=== PATIENT | female | born 1985 | race Caucasian/White ===

== ENCOUNTER 2017-06-09 11:23 | Inpatient (IN) | payer MEDICAID ==
--- NOTE | 2017-06-09 11:53 | C.PDOC ---
History Of Present Illness 32 year old female with a history of polysusbstance abuse presents to the ED with complaints of suicidal ideations. Patient is now homeless and last use was. Patient denies physical complaints or homicidal ideations. +SUICIDAL IDEATION. +POLYSUBSTANCE ABUSE, NOW HOMELESS. LAST USE EXAM PSYCH CALM COOPERATIVE +SI. NO ACTIVE PSYCHOSIS Time Seen by Provider: 06/09/17 11:48 Chief Complaint (Nursing): Psychiatric Evaluation History Per: Patient, EMS History/Exam Limitations: no limitations Onset/Duration Of Symptoms: Hrs Current Symptoms Are (Timing): Still Present Modifying Factor(s): Other (polysubstance abuse ) Associated Symptoms: Suicidal Thoughts Involuntary Hold By: None Recent travel outside of the [place]: No Past Medical History Reviewed: Historical Data, Nursing Documentation, Vital Signs Vital Signs: Last Vital Signs Temp 97.2 F L 06/09/17 11:55 Pulse 74 06/09/17 11:55 Resp 16 06/09/17 11:55 BP 116/76 06/09/17 11:55 Pulse Ox 99 06/09/17 11:55 - Medical History PMH: Anxiety, Depression, Parkinson's Disease Family History: States: Unknown Family Hx - Social History Hx Alcohol Use: No Hx Substance Use: Yes - Immunization History Hx Tetanus Toxoid Vaccination: No Hx Influenza Vaccination: No Hx Pneumococcal Vaccination: No Review Of Systems Constitutional: Negative for: Fever, Chills Cardiovascular: Negative for: Chest Pain, Palpitations Respiratory: Negative for: Cough, Shortness of Breath Gastrointestinal: Negative for: Nausea, Vomiting Psych: Positive for: Suicidal ideation, Other (polysubstance abuse) Physical Exam - Physical Exam Appears: Non-toxic, No Acute Distress Skin: Warm, Dry, No Rash Head: Atraumatic, Normacephalic, No Tenderness Eye(s): bilateral: Normal Inspection Oral Mucosa: Moist Neck: Supple Chest: Symmetrical, No Deformity Cardiovascular: Rhythm Regular, No Murmur Respiratory: No Rales, No Rhonchi, No Wheezing, Other (clear to auscultation bilaterally) Gastrointestinal/Abdominal: Soft, No Tenderness, No Distention, No Guarding, No Rebound Extremity: Normal ROM, No Tenderness Neurological/Psych: Oriented x3, Other (Patient is calm, cooperative, and + suicidal ideations. No active psychosis. ) ED Course And Treatment - Laboratory Results Result Diagrams: 06/09/17 12:30 06/09/17 12:30 Progress Note: Labs, blood work, and CRISIS evaluation were ordered. Progress - Re-Evaluation Re-evaluation Note: 06/09/17 13:13 MED CLEAR FOR CRISIS EVAL. CRISIS NOTIFIED. NO COMPLAINTS OF UTI. RECOMMEND MEDICINE CONSULT PRN FOR SLIGHT LFT ELEVATION AND UA. Disposition Counseled Patient/Family Regarding: Studies Performed, Diagnosis - Disposition Disposition: HOSPITALIZED Disposition Time: 13:53 Condition: STABLE Forms: [employer] (Senegalese) - Clinical Impression Clinical Impression: Depression, Polysubstance abuse - Scribe Statement The provider has reviewed the documentation as recorded by the Scribe Antonina Cruz All medical record entries made by the Scribe were at my direction and personally dictated by me. I have reviewed the chart and agree that the record accurately reflects my personal performance of the history, physical exam, medical decision making, and the department course for this patient. I have also personally directed, reviewed, and agree with the discharge instructions and disposition. Decision To Admit - Pt Status Changed To: Hospital Disposition Of: Inpatient - Admit Certification Admit to Inpatient:: After my assessment, the patient will require hospitalization for at least two midnights. This is because of the severity of symptoms shown, intensity of services needed, and/or the medical risk in this patient being treated as an outpatient. - InPatient: Physician Admission Certification: I certify that this patient requires 2 or more midnights of care for the following reason:: see note - . Bed Request Type: Psychiatry Admitting Physician: Opal Soliz Patient Diagnosis: Depression, Polysubstance abuse
[2017-06-09 12:36] LABS: BASO % 0.5 % (0.0-2.0); EOS % 0.5 % (0.0-4.0); HEMATOCRIT 45.3 % (34.0-47.0); LYMPH # 1.9 K/uL (1.0-4.3); LYMPH % 23.9 % (20.0-40.0); MEAN CORPUSCULAR HEMOGLOBIN 29.8 pg (27.0-31.0); MEAN CORPUSCULAR HGB CONC 33.5 g/dL (33.0-37.0); MEAN PLATELET VOLUME 9.8 fL (7.2-11.7); MONO # 0.4 K/uL (0.0-0.8); MONO % 5.1 % (0.0-10.0); NRBC % 0.1 % (0.0-2.0); WHITE BLOOD COUNT 7.9 K/uL (4.8-10.8)
[2017-06-09 12:46] LABS: RBC URINE 15 /hpf (0-3); URINE BILIRUBIN NEGATIVE (NEGATIVE); URINE BLOOD 3+ (NEGATIVE); URINE COLOR Yellow (YELLOW); URINE GLUCOSE (UA) NORMAL (Normal); URINE KETONE TRACE mg/dL (NEGATIVE); URINE LEUKOCYTE ESTERASE TRACE Leu/uL (Negative); URINE PROTEIN NEGATIVE (NEGATIVE); URINE UROBILINOGEN NORMAL mg/dL (0.2-1.0); WBC URINE 6 /hpf (0-5)
[2017-06-09 12:51] LABS: ALCOHOL SERUM < 10 mg/dl (0-10); ALKALINE PHOSPHATASE 85 U/L (38-126); ALT/SGPT 62 U/L (9-52); AST/SGOT 44 U/L (14-36); BILIRUBIN,TOTAL 0.6 mg/dL (0.2-1.3); BLOOD UREA NITROGEN 9 mg/dL (7-17); CALCIUM 9.2 mg/dl (8.6-10.4); CARBON DIOXIDE 30 mmol/L (22-30); CHLORIDE 104 mmol/L (98-107); GFR AFRICAN-AMERICAN > 60; GLUCOSE,RANDOM 118 mg/dL (65-105); POTASSIUM 3.5 mmol/L (3.6-5.2); SODIUM 143 mmol/L (132-148); TOTAL PROTEIN 9.1 g/dL (6.3-8.3)
[2017-06-09 12:53] LABS: ALB/GLOB RATIO 0.9 (1.0-2.1)
--- NOTE | 2017-06-09 14:32 | PCM.BM ---
<Ingrid Gutiérrez - Last Filed: 06/09/17 14:29> Treatment Plan Problems - Problems identified on initial assessmt Depression Date Initiated: 06/09/17 Time Initiated: 14:30 Assessment reference: NA Status: Active Substance abuse Date Initiated: 06/09/17 Time Initiated: 14:31 Assessment reference: NA Status: Active Suicidal ideation Date Initiated: 06/09/17 Time Initiated: 14:31 Assessment reference: NA Status: Active Treatment assets and liabiliti Patient Assests: cooperative, ADL independent, physically healthy, negotiates basic needs, cognitively intact Patient Liabilities: live alone (homeless), financial problems, poor support system, substance abuse (heroin, cocaine, marijuana), medical problems (seizure , last seizure was last week) - Milieu Protocol Maintain good personal hygiene: daily Encourage regular showers, daily Remind patient to perform daily oral care, other Assist patient to perform ADL's (self) Conduct patient checks and document Observation sheet: Q15 minutes (for safety) Maintain personal safety: every shift Educate patient to report safety concerns to staff, every shift Monitor environment for contraband/sharps Medication safety: Monitor for expected outcome, potential side effects: every shift, Assess barriers to learning: every shift, Assess readiness for medication education: every shift <MartínezOpal - Last Filed: 06/11/17 23:49> - Diagnosis (1) Bipolar affective, mixed, severe Status: Acute Interventions: 06/11/17 23:48 * Assess/adjust medications daily and /or as needed * See patient on an individual basis 7x/week to assess level of manic behaviors and stability * Discuss risks, benefits, side effects and alternatives of medications * (2) Opioid use disorder, severe, dependence Status: Acute Interventions: 06/11/17 23:48 * Assess 7x/week regarding severity of withdrawal * Educate regarding risks, benefits, side effects and alternatives of medications * Use Motivational Interviewing for abstinence * Use CBT for relapse prevention * Medication management for withdrawal symptoms * Encourage medication assisted treatment *
[2017-06-09] MEDS ORDERED: Aluminum Hydroxide/Magnesium Hydroxide Susp (30 mL) PO PRN (15:00)
[2017-06-10 07:38] VITALS: RESP 20; O2SAT 95
--- NOTE | 2017-06-10 09:33 | PCM.PSYCH ---
Initial Psychiatric Evaluation - Initial Psychiatric Evaluation Type of Admission: Voluntary Legal Status: Capacity Chief Complaint (in patient's own words): "I'm not doing too good doc" History of Present Illness and Precipitating Events: Pt is a 32 year old, HF, presented to the ED due to substance abuse and suicidal ideation. As per the ED chart: 'pt reports experiencing thoughts of suicide due to increased depression. Pt reports depression stems from being homeless, not having a job, not having money, and not being able to get into school. Pt reports ongoing depression, but symptoms have increased. Pt reports a plan to overdose on heroin. Pt reports using the following substances daily: heroin (3 bundles intranasally), cocaine (14 grams IV). Pt also reports occasional use of marijuana and PCP. Pt reports last using heroin and cocaine yesterday. Pt reports the following withdrawal symptoms: hot/cold sweats, body pain, stomach cramps, anxiety. Pt reports a history of seizures due to her substance abuse. Pt reports irritable and depressed mood, feeling of hopelessness and helplessness. She also reports poor sleep and poor appetite. She reports her head is running faster than normal and feels irritability. She denies any AVH or any delusions. PMH h/o seizures Current Medications: Active Medications Generic Name Dose Route Start Last Admin Trade Name Freq PRN Reason Stop Dose Admin Al Hydrox/Mg Hydrox/Simethicone 30 ml 06/09/17 15:00 Maalox 30 Ml PO TID PRN Indigestion / Heartburn Clonidine HCl 0.1 mg 06/09/17 15:00 Catapres PO Q8 PRN COWS Score More or Equal to 5 Hydroxyzine HCl 25 mg 06/09/17 15:01 06/09/17 21:12 Atarax PO 25 mg Q6 PRN Administration Agitation Loperamide HCl 2 mg 06/09/17 15:00 Imodium PO Q8 PRN Diarrhea Nicotine 1 patch 06/09/17 15:00 06/09/17 15:41 Nicoderm Cq TD 1 patch DAILY SANDY Administration Ondansetron HCl 4 mg 06/09/17 15:00 Zofran Tab PO Q8 PRN Nausea/Vomiting Pneumococcal Polyvalent Vaccine 0.5 ml 06/11/17 10:00 Pneumovax 23 Vaccine IM 06/11/17 10:01 .ONCE ONE Trazodone HCl 50 mg 06/09/17 22:00 06/09/17 21:12 Desyrel PO 50 mg HS SANDY Administration Past Psychiatric History - Past Psychiatric History Previous Treatment History: Inpatient Pertinent Medical Hx (Current Medical&Sleep Prob, Allergies): Allergies Allergy/AdvReac Type Severity Reaction Status Date / Time No Known Allergies Allergy Unverified 06/09/17 11:40 Unobtainable 06/09/17 Review of Systems - Review of Systems All systems: reviewed and no additional remarkable complaints except - Psychiatric Psychiatric: Anxiety, Depression, Irritability, Suicidal Ideation Mental Status Examination - Personal Presentation Personal Presentation: Looks stated age - Affect Affect: Constricted - Reliability in Providing Information Reliability in Providing Information: Fair - Speech Speech: Organized - Mood Mood: Depressed, Anxious - Formal Thought Process Formal Thought Process: No Impairment - Hallucinations/Delusions Hallucinations: Visual, Auditory - Obsessions/Compulsions Obsessions: No Compulsions: No - Cognitive Functions Orientation: Person, Place, Situation, Time Sensorium: Alert Attention/Concentration: Attentive Abstract Thinking: [place] Estimate of Intelligence: Below average Judgement: Imparied, as evidence by: Poor judgement, Imparied, as evidence by: Lack of insight into illness - Risk Risk: Suicidal, Withdrawal, Diminished functioning DSM 5 DX - DSM 5 DSM 5 Diagnosis: Bipolar disorder mixed severe without psychotic features Opioid use disorder severe Opioid withdrawal Cocaine use disorder severe - Recommended/Plan of Treatment Treatment Recommendations and Plan of Treatment: Bipolar disorder mixed severe without psychotic features CBT Psychoeducation Supportive therapy, group therapy, individual therapy [place] 300 mg po tid Neurontin 300 mg by mouth 2 times a day Trazodone 50 mg by mouth daily at bedtime Opioid use disorder severe CBT Psychoeducation Supportive therapy, individual therapy Use [place] for abstinence Opioid withdrawal CBT Psychoeducation Supportive therapy, individual therapy Clonidine when necessary Start methadone taper Cocaine use disorder severe Monitor signs and symptoms Use [place] for abstinence - Smoking Cessation Smoking Cessation Initiated: No
[2017-06-11] MEDS ORDERED: Pneumococcal 23-Valent Vaccine IM ONE (10:00)
[2017-06-11] MEDS ORDERED: Influenza Vaccine 60 mcg/0.5 mL SYR (4YR UP) IM ONE (10:00)
--- NOTE | 2017-06-11 10:20 | PCM.PYCHPN ---
Psychiatric Progress Note - Psychiatric Progress Note Patient Chief Complaint: "I'm not doing too good doc" Problems Identified/Issues Discussed: This patient was seen, chart reviewed, and case discussed with staff. Pt has appropriate affect and speech pattern. Pt appears slightly disheveled. Today, she reports a decrease in intensity of the feelings of depression. Pt denies feelings of hopelessness. Pt denies suicidal ideation and homicidal ideations. Pt reports her appetite and sleep are normal. Pt reports that she is not experiencing withdrawal symptoms. Pt denies feelings of anxiety and paranoia. Pt denies auditory and visual hallucinations. Patient is compliant with medications and denies any side effects. Symptoms are improving but need more time to stabilize. Support and psychoeducation given. Mental Status Examination - Cognitive Function Orientation: Person, Place, Situation, Time Attention: WNL Concentration: WNL Association: WNL Fund of Knowledge: WNL - Mood Mood: Anxious - Affect Affect: Constricted - Speech Speech: Appropriate - Formal Thought Process Formal Thought Process: No Impairment - Suicidal Ideation Suicidal Ideation: No - Homicidal Ideation Homicidal Ideation: No Goal/Treatment Plan - Goal/Treatment Plan Progress Toward Problem(s) and Goals/Treatment Plan: Bipolar disorder mixed severe without psychotic features CBT Psychoeducation Supportive therapy, group therapy, individual therapy [place] 300 mg po tid Neurontin 300 mg by mouth 2 times a day Trazodone 50 mg by mouth daily at bedtime Opioid use disorder severe CBT Psychoeducation Supportive therapy, individual therapy Use [place] for abstinence Opioid withdrawal CBT Psychoeducation Supportive therapy, individual therapy Clonidine when necessary Start methadone taper Cocaine use disorder severe Monitor signs and symptoms Use [place] for abstinence
[2017-06-12 07:39] VITALS: BP 97/48; PULSE 51; TEMP 97.8
--- NOTE | 2017-06-12 10:43 | PCM.PYCHDC ---
Mental Status Examination - Mental Status Examination Orientation: Person, Place, Situation, Time Memory: Intact Mood: Neutral Affect: Constricted Speech: Soft Attention: WNL Concentration: WNL Association: WNL Fund of Knowledge: WNL Formal Thought Process: No Impairment Description of patient's judgement and insight: good, fair Psychotic Thoughts and Behaviors: Denies any AVH Suicidal Ideation: No Current Homicidal Ideation?: No Discharge Summary - Discharge Note Reason for Hospitalization: Pt is a 32 year old, HF, presented to the ED due to substance abuse and suicidal ideation. As per the ED chart: 'pt reports experiencing thoughts of suicide due to increased depression. Pt reports depression stems from being homeless, not having a job, not having money, and not being able to get into school. Pt reports ongoing depression, but symptoms have increased. Pt reports a plan to overdose on heroin. Pt reports using the following substances daily: heroin (3 bundles intranasally), cocaine (14 grams IV). Pt also reports occasional use of marijuana and PCP. Pt reports last using heroin and cocaine yesterday. Pt reports the following withdrawal symptoms: hot/cold sweats, body pain, stomach cramps, anxiety. Pt reports a history of seizures due to her substance abuse. Pt reports irritable and depressed mood, feeling of hopelessness and helplessness. She also reports poor sleep and poor appetite. She reports her head is running faster than normal and feels irritability. She denies any AVH or any delusions. Consultations:: List each consultation separately and include: 1. Reason for request. 2. Findings. 3. Follow-up Summary of Hospital Course include:: 1. Description of specific treatment plan utilized for patients during their course of treatmen. 2. Summarize the time- course for resolution of acute symptoms and/or regressed behaviors. 3. Describe issues identified and worked on during hospitalization. 4. Describe medication utilized. 5. Describe medical problems identified and treated. 6. Reassessment of suicide risk Summary of Hospital Course: Pt is a 32 year old, HF, presented to the ED due to substance abuse and suicidal ideation. As per the ED chart: 'pt reports experiencing thoughts of suicide due to increased depression. Pt reports depression stems from being homeless, not having a job, not having money, and not being able to get into school. Pt reports ongoing depression, but symptoms have increased. Pt reports a plan to overdose on heroin. Pt reports using the following substances daily: heroin (3 bundles intranasally), cocaine (14 grams IV). Pt also reports occasional use of marijuana and PCP. Pt reports last using heroin and cocaine yesterday. Pt reports the following withdrawal symptoms: hot/cold sweats, body pain, stomach cramps, anxiety. Pt reports a history of seizures due to her substance abuse. Pt reports irritable and depressed mood, feeling of hopelessness and helplessness. She also reports poor sleep and poor appetite. She reports her head is running faster than normal and feels irritability. She denies any AVH or any delusions. PMH h/o seizures - Diagnosis (1) Bipolar affective, mixed, severe Current Visit: Yes Status: Acute (2) Opioid use disorder, severe, dependence Current Visit: Yes Status: Acute - Final Diagnosis (DSM 5) Condition upon Discharge: STABLE DSM 5: Bipolar disorder mixed severe without psychotic features Opioid use disorder severe Opioid withdrawal Cocaine use disorder severe Disposition: HOME/ ROUTINE Follow-up Treatment Plan: Bipolar disorder mixed severe without psychotic features CBT Psychoeducation Supportive therapy, group therapy, individual therapy [place] 300 mg po tid Neurontin 300 mg by mouth 2 times a day Trazodone 50 mg by mouth daily at bedtime Opioid use disorder severe CBT Psychoeducation Supportive therapy, individual therapy Use [place] for abstinence Opioid withdrawal CBT Psychoeducation Supportive therapy, individual therapy Clonidine when necessary Start methadone taper Cocaine use disorder severe Monitor signs and symptoms Use [place] for abstinence Prescriptions/Medication Reconciliation: Gabapentin [Neurontin] 300 mg PO BID #60 cap [place] Carbonate [[place] Carbonate 300MG] 300 mg PO TID #90 cap Phenytoin, Extended [Dilantin] 100 mg PO BID #90 cer traZODone [Desyrel] 50 mg PO HS #30 tab - Smoking Cessation Smoking Cessation Medication prescribed: No - Antipsychotic Medications Pt discharged on 2 or more routine antipsychotic medications: No
== END 2017-06-12 14:58 | disposition home or self-care (01) | DRG 745 ==
LOC: C.ER 11:23 → C.5E 13:54
PROVIDERS: ADMIT Psychiatry & Neurology Psychiatry; ATTEND Psychiatry & Neurology Psychiatry
PROC: HZ52ZZZ Individual Psychotherapy for Substance Abuse Treatment, Cognitive-Behavioral (ICD-10-PCS; principal; 2017-06-09)
PROC: HZ42ZZZ Group Counseling for Substance Abuse Treatment, Cognitive-Behavioral (ICD-10-PCS; 2017-06-09)
PROC: HZ59ZZZ Individual Psychotherapy for Substance Abuse Treatment, Supportive (ICD-10-PCS; 2017-06-09)
PROC: HZ56ZZZ Individual Psychotherapy for Substance Abuse Treatment, Psychoeducation (ICD-10-PCS; 2017-06-09)
PROC: HZ46ZZZ Group Counseling for Substance Abuse Treatment, Psychoeducation (ICD-10-PCS; 2017-06-09)
PROC: HZ2ZZZZ Detoxification Services for Substance Abuse Treatment (ICD-10-PCS; 2017-06-09)
DX: F11.23 Opioid dependence with withdrawal (principal); R45.851 Suicidal ideations; F31.63 Bipolar disorder, current episode mixed, severe, without psychotic features; F14.20 Cocaine dependence, uncomplicated; Z59.0 Homelessness; F41.9 Anxiety disorder, unspecified